=== PATIENT | female | born 1960 | race Caucasian/White ===

== ENCOUNTER → 2017-11-21 | Outpatient (CLI) | payer BC ==
[2015-04-25 14:44] VITALS: BP 141/82
[~2017-11-21] MED LIST: ATOR10TA PO; CHOL100013 PO; HYDR12.58 PO; LEXAPRO5 MG PO
--- NOTE | 2017-11-22 07:26 | RAD ---
EXAM: Left shoulder 3 views. HISTORY: Left shoulder pain. COMPARISON: None. FINDINGS: Acromioclavicular osteoarthritis is moderate to severe. Inferiorly directed clavicular and acromial spurs measure 4 mm. There is small osteophytes along the humeral articular surface with preservation of the joint space. No fractures are identified. Alignment is maintained. IMPRESSION: 1. Mild glenohumeral osteoarthritis. 2. Moderate to severe acromioclavicular osteoarthritis with inferiorly directed spurring. Correlate for impingement.
== END | disposition home or self-care (01) ==
LOC: RAD 17:03
PROVIDERS: ATTEND Nurse Practitioner Family
DX: M19.012 Primary osteoarthritis, left shoulder (principal); M25.712 Osteophyte, left shoulder
CPT/HCPCS: 73030

== ENCOUNTER 2019-09-19 14:37 | Emergency (ER) | payer BC ==
[~2019-09-19] VITALS: Ht 165.1 cm; Wt 98.9 kg
--- NOTE | 2019-09-19 14:58 | PHYS DOC ---
Past History Past Medical History: Cancer, High Cholesterol, Hypertension Additional Past Medical Histor: breast cancer Past Surgical History: Cancer Surgery Additional Past Surgical Histo: right-sided breast cancer lumpectomy Smoking: Non-smoker Alcohol Use: None Drug Use: None Adult General Chief Complaint Chief Complaint: SHORTNESS OF BREATH [facility] HPI Patient is a 59-year-old female who presents to the emergency department for evaluation. She states the past 5-6 days, she has had a cough. She states initially she had a cough as productive of some mucus and went to her oncologist, where she is treated with chemotherapy for breast cancer, and was put on prednisone and Levaquin, this past Tuesday. She states her chemotherapy was also stopped about a week ago, due to "inflammation" that was found on her lungs and thought to be due to the chemotherapy. The patient states that for the past 2 days she has had some "tightness in her chest, was as if she is unable to get a full deep breath, but does not have any pleuritic pain, or other chest pain. She does not have any exertional chest pain, but has had persistent shortness of breath. She denies any dizziness or lightheadedness, numbness, or focal weakness. There are no alleviating or exacerbating factors to her symptoms. Assuming a negative troponin, the patient's HEART score is a 3. Review of Systems Review of Systems Constitutional: Denies fever or chills [] Eyes: Denies change in visual acuity, redness, or eye pain [] HENT: Denies nasal congestion or sore throat [] Respiratory:No additional information not addressed in HPI [] Cardiovascular: No additional information not addressed in HPI [] GI: Denies abdominal pain, nausea, vomiting, bloody stools or diarrhea [] : Denies dysuria or hematuria [] Musculoskeletal: Denies back pain or joint pain [] Integument: Denies rash or skin lesions [] Neurologic: Denies headache, focal weakness or sensory changes [] Endocrine: Denies polyuria or polydipsia [] All other systems were reviewed and found to be within normal limits, except as documented in this note. Allergies Allergies Allergies Coded Allergies Type Severity Reaction Last Updated Verified No Known Drug Allergies 04/25/15 No Physical Exam Physical Exam PHYSICAL EXAM: CONSTITUTIONAL: Well developed, well nourished HEAD: normocephalic, atraumatic EENT: PERRL, EOMI. Conjunctivae normal color, sclerae non-icteric; moist mucous membranes. NECK: Supple, non-tender; no meningismus. LUNGS: Lungs CTA, breathing even and unlabored. Normal air movement. HEART: Regular rate and rhythm, no murmur CHEST: No deformity; non-tender ABDOMEN: The abdomen is soft, and non-tender, no masses or bruits. EXTREM: Normal ROM; no deformity, no calf tenderness. Normal pulses palpable in all extremities. There is no pedal edema. SKIN: No rash; no diaphoresis NEURO: Alert; normal speech and cognition; CN's grossly intact; strength grossly intact without focal deficit. BACK: No CVA TTP. Current Patient Data Lab Results Laboratory Tests Test 09/19/19 15:05 White Blood Count 7.1 x10^3/uL Red Blood Count 4.18 x10^6/uL Hemoglobin 13.1 g/dL Hematocrit 39.4 % Mean Corpuscular Volume 94 fL Mean Corpuscular Hemoglobin 31 pg Mean Corpuscular Hemoglobin Concent 33 g/dL Red Cell Distribution Width 17.7 % Platelet Count 341 x10^3/uL Neutrophils (%) (Auto) 59 % Lymphocytes (%) (Auto) 32 % Monocytes (%) (Auto) 8 % Eosinophils (%) (Auto) 1 % Basophils (%) (Auto) 0 % Neutrophils # (Auto) 4.2 x10^3uL Lymphocytes # (Auto) 2.3 x10^3/uL Monocytes # (Auto) 0.6 x10^3/uL Eosinophils # (Auto) 0.1 x10^3/uL Basophils # (Auto) 0.0 x10^3/uL Platelet Estimate Pending Sodium Level 134 mmol/L Potassium Level 3.2 mmol/L Chloride Level 93 mmol/L Carbon Dioxide Level 33 mmol/L Anion Gap 8 Blood Urea Nitrogen 18 mg/dL Creatinine 0.9 mg/dL Estimated GFR (Cockcroft-Gault) 64.5 BUN/Creatinine Ratio 20 Glucose Level 107 mg/dL Calcium Level 9.4 mg/dL Total Bilirubin 0.4 mg/dL Aspartate Amino Transf (AST/SGOT) 29 U/L Alanine Aminotransferase (ALT/SGPT) 34 U/L Alkaline Phosphatase 95 U/L Troponin I Quantitative < 0.017 ng/mL CP-Ahv-U-Type Natriuretic Peptide 133 pg/mL Total Protein 8.0 g/dL Albumin 3.8 g/dL Albumin/Globulin Ratio 0.9 Current Medications Medications (Trade) Dose Ordered Sig/Barbara Route PRN Reason Start Time Stop Time Status Last Admin Dose Admin Iohexol (Omnipaque 350 Mg/ml) 100 ml 1X ONCE IV 09/19/19 15:00 09/19/19 15:03 DC 09/19/19 15:46 Info (Do NOT chart on this entry -- for MONITORING) 1 each PRN DAILY PRN MC SEE COMMENTS 09/19/19 15:15 09/21/19 15:14 EKG EKG []Normal sinus rhythm at a rate of 79 beats for minute, left axis deviation, normal intervals, there are nonspecific ST/T changes present. Radiology/Procedures Radiology/Procedures PROCEDURE: CT ANGIOGRAPHY CHEST Examination: CT ANGIOGRAPHY CHEST History: Lung cancer, shortness of breath, chest pain Comparison/Correlation: None Findings: Axial images of the chest were obtained following IV contrast according to pulmonary arteriography protocol. Sagittal and coronal reformatted images were provided. Maximum intensity projection images were provided. Patchy consolidation involving the right upper lung field is noted. Left posterior basilar linear atelectasis is present. No pneumothorax. No pulmonary arterial thromboembolic disease although evaluation may be limited regions of infiltrate. No enlarged thoracic lymph nodes. There are thoracic aorta is grossly unremarkable. Cholecystectomy noted. Diffuse bony sclerotic findings noted. Impression: No pulmonary arterial thromboembolic disease. Diffuse bony sclerotic metastases. Right upper lung field consolidation. Follow-up to resolution recommended.[] PROCEDURE: PORTABLE CHEST 1V PORTABLE CHEST 1V Clinical indications: Shortness of breath and chest pain. COMPARISON: April 08, 2014. Findings: Mild chronic interstitial thickening or peribronchial thickening is seen which is stable. Mild chronic linear scarring of the left lower lung zone is seen which is stable. No new lung infiltrate or pleural effusion or pulmonary edema or lung mass or pneumothorax is seen. The heart size, pulmonary vasculature, mediastinum and both danyelle are unremarkable. Surgical clips are seen within the right lateral chest wall or breast. Impression: No new radiographic abnormality is seen. Course & Med Decision Making Course & Med Decision Making Pertinent Labs and Imaging studies reviewed. (See chart for details) []5:10 PM: The patient's condition remains stable. I discussed test results with the patient. We discussed the inability to rule out a cardiac etiology in the emergency department without further observation in the hospital, but clinical suspicion for cardiac etiology is very low and the patient declined further admission. She states in the past that she has had right upper lung "inflammation" where her oncologist has been following her for, and I suspect that that is the cause of the CT findings today, not pneumonia. I discussed importance of continuing her previously prescribed antibiotics, the importance of close follow-up and return precautions. Dragon Disclaimer Dragon Disclaimer This electronic medical record was generated, in whole or in part, using a voice recognition dictation system. Departure Departure: Impression: Primary Impression: Dyspnea Additional Impression: Breast cancer Disposition: HOME, SELF-CARE Condition: STABLE Referrals: JERE DYER (PCP) Patient Instructions: Shortness of Breath Additional Instructions: Follow up with your oncologist for further evaluation. Continue previously prescribed medications as instructed. Return to medical care for any new or worsening symptoms, development of increasing shortness of breath, worsening ch est pain, or any other new, or concerning symptoms. Problem Qualifiers ADINA BUCHANAN MD Sep 19, 2019 14:58
[2019-09-19] MEDS ORDERED: IOHEXOL 350 MG/ML 100 ML VIAL. IV ONE (15:00)
[2019-09-19] MEDS ORDERED: CONTRAST GIVEN MC PRN (15:15)
[2019-09-19 15:30] LABS: BASO % 0 % (0-3); EOS # 0.1 x10^3/uL (0.0-0.7); EOS % 1 % (0-3); HEMATOCRIT 39.4 % (36.0-47.0); HEMOGLOBIN 13.1 g/dL (12.0-15.5); LYMPH # 2.3 x10^3/uL (1.0-4.8); LYMPH % 32 % (24-48); MEAN CORPUSCULAR HEMOGLOBIN 31 pg (25-35); MEAN CORPUSCULAR HGB CONC 33 g/dL (31-37); MEAN CORPUSCULAR VOLUME 94 fL (79-100); MONO # 0.6 x10^3/uL (0.0-1.1); MONO % 8 % (0-9); NEUT # 4.2 x10^3uL (1.8-7.7); NEUT % 59 % (31-73); PLATELET COUNT 341 x10^3/uL (140-400); RED BLOOD COUNT 4.18 x10^6/uL (3.50-5.40); RED CELL DISTRIBUTION WIDTH 17.7 % (11.5-14.5); WHITE BLOOD COUNT 7.1 x10^3/uL (4.0-11.0)
[2019-09-19 15:52] LABS: ALBUMIN 3.8 g/dL (3.4-5.0); ALBUMIN/GLOBULIN RATIO 0.9 (1.0-1.7); CALCIUM 9.4 mg/dL (8.5-10.1); CREATININE 0.9 mg/dL (0.6-1.0); GFR 64.5; POTASSIUM 3.2 mmol/L (3.5-5.1); TOTAL BILIRUBIN 0.4 mg/dL (0.2-1.0)
--- NOTE | 2019-09-19 16:10 | RAD ---
PORTABLE CHEST 1V Clinical indications: Shortness of breath and chest pain. COMPARISON: April 08, 2014. Findings: Mild chronic interstitial thickening or peribronchial thickening is seen which is stable. Mild chronic linear scarring of the left lower lung zone is seen which is stable. No new lung infiltrate or pleural effusion or pulmonary edema or lung mass or pneumothorax is seen. The heart size, pulmonary vasculature, mediastinum and both danyelle are unremarkable. Surgical clips are seen within the right lateral chest wall or breast. Impression: No new radiographic abnormality is seen. Electronically signed by: Ron Santiago MD (09/19/2019 4:08 PM) [place] [id number]
--- NOTE | 2019-09-19 16:16 | RAD ---
Examination: CT ANGIOGRAPHY CHEST History: Lung cancer, shortness of breath, chest pain Comparison/Correlation: None Findings: Axial images of the chest were obtained following IV contrast according to pulmonary arteriography protocol. Sagittal and coronal reformatted images were provided. Maximum intensity projection images were provided. Patchy consolidation involving the right upper lung field is noted. Left posterior basilar linear atelectasis is present. No pneumothorax. No pulmonary arterial thromboembolic disease although evaluation may be limited regions of infiltrate. No enlarged thoracic lymph nodes. There are thoracic aorta is grossly unremarkable. Cholecystectomy noted. Diffuse bony sclerotic findings noted. Impression: No pulmonary arterial thromboembolic disease. Diffuse bony sclerotic metastases. Right upper lung field consolidation. Follow-up to resolution recommended. PQRS Compliance Statement: One or more of the following individualized dose reduction techniques were utilized for this examination: 1. Automated exposure control 2. Adjustment of the mA and/or kV according to patient size 3. Use of iterative reconstruction technique Electronically signed by: Sang Cooley MD (09/19/2019 4:13 PM) [facility]
[2019-09-19 17:14] LABS: % ATYL 1 % (0-0); % BANDS 3 % (0-9); % BASOS 2 % (0-3); % EOS 1 % (0-5); % LYMPHS 28 % (24-48); % METAS 1 % (0-0); % MONOS 3 % (0-10); % SEGS 61 % (35-66); PLT ESTIMATE ADEQUATE (ADEQUATE)
[2019-09-19 17:15] LABS: ANISOCYTOSIS SLIGHT; HYPERSEGS PRESENT
[2019-09-19 17:32] VITALS: BP 121/80
--- NOTE | 2019-09-20 01:53 | EKG ---
[address] [address] Test Date: 2019-09-19 Test Time: 14:49:44 Pat Name: SIS LAN Department: Room: Gender: F Picture Framer: : [id number] Requested By: ADINA BUCHANAN Order Number: [id number] Reading MD: Measurements Intervals [place] Rate: 79 P: 38 MN: 146 QRS: -7 QRSD: 90 T: 29 QT: 420 QTc: 483 Interpretive Statements SINUS RHYTHM LEFTWARD AXIS QRS(T) CONTOUR ABNORMALITY CONSIDER ANTEROSEPTAL MYOCARDIAL DAMAGE PROLONGED QT POSSIBLY ABNORMAL ECG RI6.01 No previous ECG available for comparison
== END 2019-09-19 17:32 | disposition home or self-care (01) ==
LOC: ER 14:37
DX: R06.00 Dyspnea, unspecified (principal); R07.89 Other chest pain; C50.919 Malignant neoplasm of unspecified site of unspecified female breast; E78.00 Pure hypercholesterolemia, unspecified; I10 Essential (primary) hypertension
CPT/HCPCS: 36415; 71045; 71275; 80053; 83880; 84484; 85007; 85025; 93005; 99285; Q9967

== ENCOUNTER → 2019-10-30 | Day surgery (SDC) | payer BC ==
[~2019-10-30] MED LIST changes: +ACETAMINOPHEN 325 MG TABLET PO PRN; +ALBUTEROL SULFATE 2.5 MG/3 ML NEBU. NEB PRN; +ALPR0.25 PO; +ATROPINE 0.5 MG/5 ML DISP.SYRIN. IV PRN; +BALANCED SALT IRRIG OPHTH SOLN 15 ML BOTTLE. IRR ONE; +CALC500T54 PO; +CATARACT OPHTH GEL 0.5 ML SYRINGE. OS ONE; +CHOL100017 PO; +CHONDROIT-SOD-HYALURONATE KIT. OS ONE; +DEXAMETHASONE SOD PHOS 4 MG/ML VIAL IVP ONE; +DEXAMETHASONE SOD PHOS 4 MG/ML VIAL ONE; +EPINEPHrine AMPULE 0.5 MG in BALANCED SALT IRRIG SOLN PLUS 500 ML IO ONE; +ERYTHROMYCIN 0.5% OPHTH OINTMENT 1GM TUBE. OS ONE; +ESCITALOPRAM OX10 MG PO; +HYALURONIDASE 75UNITS in LIDOCAINE 2% PF OPHTH 10 ML SYRINGE. OS ONE; +HYDR-2145 PO; +IV RINGERS SOLUTION,LACTATED 1,000 ML IV SCH; +KETOROLAC TROMETHAMINE 0.5% OPHTH SOLUTION BOTTLE. ONE; +KETOROLAC TROMETHAMINE 0.5% OPHTH SOLUTION BOTTLE. OS SCH; +LETR2.5T2 PO; +LIDO/EPI IN BSS OPHTH 8 ML SYRINGE OD SCH; +MIDAZOLAM HCL PF 2 MG/2 ML VIAL. ONE; +MOXIFLOXACIN 0.5% OPHTH SOLUTION 3ML BOTTLE. OS SCH; +ONDANSETRON PF 4 MG/2 ML VIAL. IV PRN; +PANT40TA3 PO; +POVIDONE-IODINE 5% OPHTH SOLUTION 30ML BOTTLE. OS ONE; +PROPOFOL 20 ML IV ONE; +TETRACAINE 0.5% OPHTH SOLUTION 4ML BOTTLE. OS ONE; +TETRACAINE 0.5% OPHTH SOLUTION 4ML BOTTLE. OU ONE; +TOBRAMYCIN 0.3% OPHTH SOLUTION 5ML BOTTLE. OS ONE; +TOBRAMYCIN SULFATE IV ONE; +diphenhydrAMINE 50 MG/ML VIAL IV PRN; +prednisoLONE ACETATE 1% OPHTH SUSPENSION 5ML BOTTLE. ONE; +prednisoLONE ACETATE 1% OPHTH SUSPENSION 5ML BOTTLE. OS SCH; +zometa IV
[2019-10-30] MEDS: MOXIFLOXACIN 0.5% OPHTH SOLUTION 3ML BOTTLE. OS SCH ×3 (11:10→11:20)
--- NOTE | 2019-10-30 12:53 | PDOC4 ---
Cataract Toric OS Date of Procedure: Oct 30, 2019 Preoperative Doagnosis: 1. Senile Cataract, OS 2. Corneal astigmatism, OS Postoperative Diagnosis: 1. Senile Cataract, OS 2. Corneal astigmatism, OS 3. Poor pupil dilation Anesthesia: Local with monitored anesthesia care Surgeon: Eden Jones D.O. Procedure: Phacoemulsification with toric intraocular lens implant at 50 degrees, OS Findings: 1. Senile Cataract, OS 2. Corneal astigmatism, OS 3. Poor pupil dilation Indications: Worsening vision interfering with patient's lifestyle Narrative: After discussing the risks, complications and alternatives, including but not limited to loss of vision, infection, bleeding, swelling, anesthetic reaction, capsule rupture with vitreous loss, etc., the patient was given topical anesthetic in the eye. The eye was then marked at the 3, 6 and 9 o'clock limbus. Periocular anesthesia was given and a [place] Balloon was applied for 10 minutes. The patient was transferred to the main operating room and was prepped and draped in the usual sterile fashion and positioned under the microscope. A lid speculum was placed. A temporal clear corneal incision was made with a keratome and viscoelastic was injected into the anterior chamber. A 5.5 mm diameter corneal amy was placed. A side port incision was made. A continuous tear capsulorrhexis was performed, then hydrodissection was accomplished with balanced salt solution. The emulsifaction needle was placed in the eye and the nucleus was emulsified. The remaining cortical material was removed with the irrigation and aspiration apparatus. The capsule was polished as needed. The posterior capsule was noted to be clean and intact. Viscoelastic was injected into the eye inflating the capsular bag. The cornea was marked at the appropriate meridian for toric IOL implantation. An intraocular lens was injected into the eye, unfolding as desired and positioned in the capsular bag at the appropriate meridian. The wound edges were hydrated with balanced salt solution and there were no leaks. Viscoelastic was injected over the limbal incisions. Antibiotic and steroid were placed on the eye. The lid speculum was removed and a patch and Knott shield were applied. There were no complications and the patient was taken to the PACU in good condition. EDEN JONES DO Oct 30, 2019 12:53
[2019-10-30 13:04] VITALS: BP 117/75
== END | disposition home or self-care (01) ==
LOC: SURG 09:45
PROVIDERS: ATTEND Ophthalmology
DX: H25.12 Age-related nuclear cataract, left eye (principal); I10 Essential (primary) hypertension; K21.9 Gastro-esophageal reflux disease without esophagitis; F41.9 Anxiety disorder, unspecified; F32.9 Major depressive disorder, single episode, unspecified; K58.9 Irritable bowel syndrome, unspecified; E66.9 Obesity, unspecified; Z68.36 Body mass index [BMI] 36.0-36.9, adult; Z85.3 Personal history of malignant neoplasm of breast; Z98.890 Other specified postprocedural states; Z88.1 Allergy status to other antibiotic agents; Z90.710 Acquired absence of both cervix and uterus; Z98.41 Cataract extraction status, right eye; Z96.1 Presence of intraocular lens
CPT/HCPCS: 66984; J0171; J1100; J2704; V2787